=== PATIENT | female | born 1990 | race Caucasian/White ===

== ENCOUNTER 2019-04-07 12:58 | Emergency (ER) | payer MEDICAID ==
[~2019-04-07] VITALS: Ht 154.9 cm; Wt 56.9 kg
[~2019-04-07 12:58] MED LIST: PREN-39 PO
[2019-04-07 13:01] VITALS: BP 118/65; PULSE 77; RESP 18; Ht 154.9 cm; Wt 56.9 kg
[2019-04-07] MEDS ORDERED: ACETAMINOPHEN 500 MG TAB PO STA (14:15)
--- NOTE | 2019-04-07 14:26 | ERD ---
ER Documentation Chief Complaint Chief Complaint LOWER ABD PAIN SINCE MONDAY , DENIES N/V/D HPI 28-year-old female presents with abdominal pain for the past 4 days. She reports that the pain is localized to the epigastric region and nonspecifically throughout her lower abdomen. She describes the pain as 8 out of 10 intermitten t, bloated/ aching pain that comes and goes every 10 minutes. states that that she is experiencing CVA tenderness as well. Denies any nausea, vomiting, diarrhea or constipation. She also denies any fevers, chills, sore throat, congestion. She denies any sick contacts or recent travel. Denies a s ignificant past medical history. She states her only surgeries were 2 C- sections. ROS All systems reviewed and are negative except as per history of present illness. Medications Home Meds Active Scripts Ciprofloxacin Hcl* (Ciprofloxacin Hcl*) 500 Mg Tablet, 500 MG PO BID for 7 Days, TAB Prov:TROY KING PA-C 04/07/19 Omeprazole* (Omeprazole*) 20 Mg Capsule.dr, 20 MG PO DAILY, #30 CAP Prov:TROY KING PA-C 04/07/19 Reported Medications Vits W-Ca,Fe,Fa(<1MG) ( Vitamins) 1 Tab Tablet, 1 TAB PO DAILY 03/19/14 Allergies Allergies: Coded Allergies: No Known Allergy (Unverified , 03/19/14) PMhx/Soc Medical and Surgical Hx: pt denies Medical Hx, pt denies Surgical Hx Hx Alcohol Use: No Hx Substance Use: No Hx Tobacco Use: No Smoking Status: Never smoker FmHx Family History: diabetes Physical Exam Vitals Vital Signs Date Temp Pulse Resp B/P (MAP) Pulse Ox O2 O2 Flow FiO2 Time Delivery Rate 04/07/19 97.6 77 18 118/65 99 13:01 (82) Physical Exam Const: No acute distress, appears well Head: Atraumatic Eyes: Normal Conjunctiva, PERRLA ENT: Normal External Ears, Nose and Mouth. [place] and moist Neck: Full range of motion. Resp: Clear to auscultation bilaterally Cardio: Regular rate and rhythm, no murmurs Abd: Soft abd. Tenderness along epigastric and suprapubic region. Normal bowel sounds. Negative Mcburneys, no rebound tenderness, no guarding Back: Bilateral CVAT Ext: No cyanosis, or edema Neur: Awake and alert Psych: Normal Mood and Affect Result Diagram: 04/07/19 1440 04/07/19 1440 Results 24 hrs Laboratory Tests Test 04/07/19 14:40 04/07/19 15:05 04/07/19 15:06 White Blood Count 8.4 10^3/ul Red Blood Count 4.14 10^6/ul Hemoglobin 13.0 g/dl Hematocrit 39.8 % Mean Corpuscular Volume 96.1 fl Mean Corpuscular Hemoglobin 31.4 pg Mean Corpuscular Hemoglobin Concent 32.7 g/dl Red Cell Distribution Width 11.6 % Platelet Count 222 10^3/UL Mean Platelet Volume 11.3 fl Immature Granulocytes % 0.200 % Neutrophils % 69.4 % Lymphocytes % 21.1 % Monocytes % 7.8 % Eosinophils % 1.0 % Basophils % 0.5 % Nucleated Red Blood Cells % 0.0 /100WBC Immature Granulocytes # 0.020 10^3/ul Neutrophils # 5.8 10^3/ul Lymphocytes # 1.8 10^3/ul Monocytes # 0.7 10^3/ul Eosinophils # 0.1 10^3/ul Basophils # 0.0 10^3/ul Nucleated Red Blood Cells # 0.0 10^3/ul Sodium Level 144 mmol/L Potassium Level 4.6 mmol/L Chloride Level 107 mmol/L Carbon Dioxide Level 29 mmol/L Anion Gap 8 Blood Urea Nitrogen 7 mg/dl Creatinine 0.52 mg/dl Est Glomerular Filtrat Rate mL/min > 60 mL/min Glucose Level 92 mg/dl Calcium Level 9.0 mg/dl Bedside Urine pH (LAB) 7.5 Bedside Urine Protein (LAB) 1+ Bedside Urine Glucose (UA) Negative Bedside Urine Ketones (LAB) Negative Bedside Urine Blood 1+ Bedside Urine Nitrite (LAB) Negative Bedside Urine Leukocyte Esterase (L 2+ POC Beta HCG, Qualitative NEGATIVE Current Medications Medications Dose Sig/Jade Start Time Status Last (Trade) Ordered Route PRN Stop Time Admin Dose Reason Admin 500 mg ONCE STAT 04/07/19 DC 04/07/19 Acetaminophen PO 14:15 04/07/19 14:35 (Tylenol 14:19 Tab) Famotidine 20 mg ONCE STAT 04/07/19 DC 04/07/19 (Pepcid) PO 15:16 04/07/19 15:26 15:19 40 ml ONCE STAT 04/07/19 DC 04/07/19 Miscellaneous PO 15:16 04/07/19 15:26 Medication 15:19 (Gi Cocktail (2)) Ceftriaxone 1 gm ONCE ONCE 04/07/19 DC 04/07/19 Sodium IM 15:30 04/07/19 15:37 (Rocephin) 15:31 Lidocaine 5 ml ONCE ONCE 04/07/19 DC 04/07/19 (Xylocaine INFIL 15:30 04/07/19 15:37 1% (Mpf)) 15:31 Procedures/MDM ED COURSE: The patient was stable throughout ED course. I kept the patient and/or family informed of laboratory and diagnostic imaging results throughout the ED course. MEDICATIONS GIVEN: Tylenol, Rocephin, Pepcid, GI cocktail, lidocaine Patient tolerated medication well with no adverse reactions. Patient reported improvement in pain. MEDICAL DECISION MAKING: Patient is a 28-year-old female with 4 days of epigastric and suprapubic abdominal pain. She reports is been feeling bloated with pain radiating to her flanks. This patient presents to the ED with symptoms consistent with a pyelonephritis and gastritis. Considering the patient history and physical during exam, other differential diagnosis that were considered include, bladder cancer, chlamydial genitourinary infections, herpes simplex, interstitial cystitis, PID, urethrtitis, vaginitis.vital signs were reviewed. Patient is afebrile. Patient was not hypoxic. Patient was hemodynamically stable. Patient was instructed to follow-up with primary care provider and possibly GI for further work-up of gastritis if symptoms persist PRESCRIPTION: Omeprazole, ciprofloxacin DISCHARGE: At this time, patient is stable for discharge and outpatient management. I have instructed the patient to follow-up with his/her primary care physician in 1-2 days. I have discussed with the patient the possibility of needing to see a specialist for further workup and imaging studies if symptoms persist. I have instructed the patient to promptly return to the ER for any new or worsening symptoms including increased pain, fever, nausea, vomiting, weakness or LOC. The patient and/or family expressed understanding of and agreement with this plan. All questions were answered. Home care instructions were provided. Disclaimer: Inadvertent spelling and grammatical errors are likely due to EHR/dictation software use and do not reflect on the overall quality of patient care. Also, please note that the electronic time recorded on this note does not necessarily reflect the actual time of the patient encounter. Departure Condition: TROY Denny PA-C Apr 07, 2019 14:26
[2019-04-07] MEDS ORDERED: FAMOTIDINE 20 MG TAB PO STA (15:16)
[2019-04-07] MEDS ORDERED: LIDOCAINE/MYLANTA 40 ML BTL PO STA (15:16)
[2019-04-07] MEDS ORDERED: OMEP20CA16 PO (15:27)
[2019-04-07] MEDS ORDERED: CIPR500T4 PO (15:28)
[2019-04-07] MEDS ORDERED: CEFTRIAXONE 1 GM INJ IM ONE (15:30)
[2019-04-07] MEDS ORDERED: LIDOCAINE 1% (MPF) 5 ML VIAL INFIL ONE (15:30)
== END 2019-04-07 15:54 | disposition home or self-care (01) ==
LOC: FTE 12:58
DX: R10.13 Epigastric pain (principal)
CPT/HCPCS: 80048; 81003; 81025; 85025; 96372; J0696; Z7502; Z7610